=== PATIENT | male | born 1990 | race American Indian/Alaskan Native ===

== ENCOUNTER 2017-09-25 20:05 | Emergency (ER) | payer OTHER ==
[2017-09-25 21:35] VITALS: BP 139/95
[2017-09-25] MEDS ORDERED: BENADRYL IM ONE (21:39)
== END 2017-09-26 03:30 | disposition left against medical advice (07) ==
LOC: ED 20:05
DX: J02.9 Acute pharyngitis, unspecified (principal); Z53.21 Procedure and treatment not carried out due to patient leaving prior to being seen by health care provider
CPT/HCPCS: J1200; J2930